=== PATIENT | female | born 1940 | race Caucasian/White ===

== ENCOUNTER → 2017-05-11 | Outpatient (CLI) | payer MEDICARE | END | disposition home or self-care (01) | LOC: GMAM 17:31 | PROVIDERS: ATTEND Family Medicine | DX: M25.50 Pain in unspecified joint (principal) ==

== ENCOUNTER → 2017-05-20 | Outpatient (CLI) | payer MEDICARE | END | disposition home or self-care (01) | LOC: GMAM 17:00 | PROVIDERS: ATTEND Family Medicine | DX: D64.9 Anemia, unspecified (principal); D51.9 Vitamin B12 deficiency anemia, unspecified ==

== ENCOUNTER 2017-05-28 17:31 | Inpatient (IN) | payer MEDICARE ==
[2017-05-28] MEDS ORDERED: PANTOPRAZOLE SODIUM IV 40 MG VIAL IV ONE (18:40)
[2017-05-28] MEDS ORDERED: SODIUM CHLORIDE 0.9% 1000ML 1,000 ML IVS ONE ×2 (18:40→23:38)
--- NOTE | 2017-05-28 18:42 | ED.PDOC ---
History of Present Illness - General Chief Complaint: Abdominal Pain Stated Complaint: Right upper abdominal discomfort Time Seen by Provider: 05/28/17 17:35 Source: patient, RN notes reviewed, Vital Signs reviewed, RN/MD Exam Limitations: no limitations - History of Present Illness Initial Comments: Patient sent to ER by PCP due to anemia and RUQ abdominal pain. Her Hgb in Clinic was 8.2 and her stool was guiac +. She reports intermittent RUQ soreness for the past 4 days. Pain is worse with Tomatoes and an empty stomach and feels better if she eats crackers. She no longer has her gallbladder. She does have history of a gastric ulcer. Timing/Duration: intermittent - over past 4 days Severity: mild Improving Factors: eating Worsening Factors: other - empty stomach and acidic foods Associated Symptoms: malaise, weakness Allergies/Adverse Reactions: Allergies Acetaminophen [From Vicodin] Allergy (Verified 05/28/17 19:42) Unknown Cephalexin [From Keflex] Allergy (Verified 05/28/17 19:42) Unknown Cimetidine [From Tagamet HB] Allergy (Verified 05/28/17 19:42) Unknown Clarithromycin [From Biaxin] Allergy (Verified 05/28/17 19:42) Unknown Codeine Allergy (Verified 05/28/17 19:42) Unknown Cyclobenzaprine [From Flexeril] Allergy (Verified 05/28/17 19:42) Unknown Fluoxetine [From Prozac] Allergy (Verified 05/28/17 19:42) Unknown Hydrocodone [From Vicodin] Allergy (Verified 05/28/17 19:42) Unknown Levofloxacin [From Levaquin] Allergy (Verified 05/28/17 19:42) Unknown Penicillins Allergy (Verified 05/28/17 19:42) Unknown Sulfamethoxazole w/Trimethoprim [From Bactrim] Allergy (Verified 05/28/17 19:42) Unknown Sulfonamides Allergy (Uncoded 05/28/17 19:42) Unknown Review of Systems - Review of Systems Constitutional: States: malaise, weakness. Denies: chills, fever EENTM: States: no symptoms reported Respiratory: States: no symptoms reported Cardiology: States: no symptoms reported Gastrointestinal/Abdominal: States: see HPI, abdominal pain, nausea. Denies: constipation, diarrhea, vomiting Genitourinary: States: no symptoms reported Musculoskeletal: States: no symptoms reported Skin: States: no symptoms reported Neurological: States: no symptoms reported Hematologic/Lymphatic: States: easy bruising All other Systems: No Change from Baseline Past Medical History (General) - Patient Medical History Hx Stroke: No Hx Congestive Heart Failure: No Hx Hypertension: Yes Hx Diabetes: No Hx Gastroesophageal Reflux: Yes MRSA Source:: Blood Surgical History: appendectomy, cholecystectomy, Hysterectomy, other - Vaccination History Hx Influenza Vaccination: Yes - 2017 Hx Pneumococcal Vaccination: Yes - unknown date - Social History Hx Tobacco Use: No Family Medical History - Family History Mother Living Status: Age at (years of age): 89 Hx Family Congestive Heart Failure: Yes - onset at 89 years age Physical Exam - Physical Exam General Appearance: Alert, Comfortable, No apparent distress, Well Developed, Well Groomed, Well Hydrated, Well Nourished Ears, Nose, Throat: hearing grossly normal Neck: full range of motion, supple, normal inspection Respiratory: lungs clear, normal breath sounds, no respiratory distress, no accessory muscle use Cardiovascular/Chest: regular rate, rhythm, no edema, no gallop, no JVD, no murmur Gastrointestinal/Abdominal: normal bowel sounds, soft, no organomegaly, no pulsatile mass, tenderness - mild epigastric tenderness Extremity: normal range of motion, non-tender, normal inspection, no pedal edema Neurologic: alert, normal mood/affect, oriented x 3 Skin Exam: normal color, warm/dry Comments: Vital Signs 05/28/17 18:06 Temperature 98.1 F Pulse Rate [ 69 Left Radial] Respiratory 18 Rate Blood Pressure 123/47 [Left Arm] O2 Sat by Pulse 95 Oximetry Progress - Progress Progress: 05/28/17 20:35 Pain resolved with Protonix Awaiting eval by Hospitalist 05/28/17 21:14 Discussed with Veronica Holliday NP - will admit - Results/Orders Results/Orders: Laboratory Tests 05/28/17 05/28/17 19:36 19:36 WBC 14.0 H RBC 2.29 L Hgb 7.7 L* Hct 23.3 L MCV 101.5 H MCH 33.6 H MCHC 33.2 RDW 17.1 H Plt Count 124 L MPV 10.3 Absolute Neuts (auto) 8.40 H Absolute Lymphs (auto) 3.70 H Absolute Monos (auto) 1.60 H Absolute Eos (auto) 0.20 Absolute Basos (auto) 0.20 H Neutrophils % 59.6 Lymphocytes % 26.2 Monocytes % 11.3 H Eosinophils % 1.7 Basophils % 1.2 Sodium 135 Potassium 5.3 H Chloride 98 L Carbon Dioxide 25 Anion Gap 17.3 BUN 71 H Creatinine 2.06 H BUN/Creatinine Ratio 34.5 H Random Glucose 127 H Serum Osmolality 292.5 Calcium 9.9 Total Bilirubin 0.3 AST 22 ALT 16 Alkaline Phosphatase 65 Serum Total Protein 7.2 Albumin 3.7 Globulin 3.5 Albumin/Globulin Ratio 1.1 Departure - Departure Clinical Impression: Anemia Qualifiers: Anemia type: unspecified type Qualified Code(s): D64.9 - Anemia, unspecified Gastritis Qualifiers: Gastritis type: unspecified gastritis Chronicity: acute Gastritis bleeding: presence of bleeding unspecified Qualified Code(s): K29.00 - Acute gastritis without bleeding Time of Disposition: 21:14 Disposition: Admit Patient Condition: Good Departure Forms: ED Discharge - Pt. Copy, Patient Portal Self Enrollment Referrals: Anibal Godinez MD [Primary Care Provider] - 1-2 Weeks Decision To Admit - Decistion To Admit Decision to Admit Reason: Admit from ER Decision to Admit Date: 05/28/17 Decision to Admit Time: 21:12
[2017-05-28] MEDS ORDERED: diphenhydrAMINE HCL 50 MG/ML VIAL IV ONE (21:45)
[2017-05-28] MEDS ORDERED: FUROSEMIDE INJ 20 MG/2 ML VIAL IV ONE (21:45)
[2017-05-28] MEDS ORDERED: SODIUM CHLORIDE 0.9% 500ML 500 ML IVS SCH (22:00)
--- NOTE | 2017-05-28 22:10 | HP ---
SUPERVISING PHYSICIAN: Anibal Godinez MD CHIEF COMPLAINT: Right upper quadrant abdominal pain, weakness and fatigue. HISTORY OF PRESENT ILLNESS: This is a 77-year-old, female patient who has just recently moved to [place] to live with her daughter. She had been seen a week or so ago in clinic and Dr. Godinez had some some routine blood work as well as an anemia panel because she presented with anemia at that time. She also had some inflammatory issues going on and an inflammatory panel was also done. Today, she presented with right upper quadrant abdominal pain that was quite severe and she also reported there were some blood streaks on her toilet tissue and she did have a guaiac-positive stool. She was seen in the Urgent Care Clinic at [facility] and was sent over to the Emergency Room for a workup. Earlier in the week, her hemoglobin was 8.7 and today in the Emergency Room, it was 7.7. She had an elevated white count of 14,000, but her neutrophils are normal at 59.6%. Her MCV was 101.5 with MCHC of 33.2 and MCH of 33.6. Platelet count was slightly low at 124 with sodium 135, potassium 5.3, chloride 98, carbon dioxide 25, BUN 71, creatinine 2.06. She does have a history of some renal failure that was diagnosed in 2008 due to excessive intake of NSAIDs. No radiology exams were done in the Emergency Room. I discussed her case with Dr. Godinez and felt that most likely her anemia may be due to anemia of chronic disease. She has had an increased amount of stress with her recent move from [place] to [place]. She also had guaiac-positive stool, but she also has hemorrhoids, so her occult may be positive due to that. She was admitted to the hospital. PAST MEDICAL HISTORY: 1. Gastroesophageal reflux disease. 2. B12 deficiency. 3. Unspecified anemia. 4. Hypertension. 5. Chronic renal failure. 6. Polio at age 1. 7. Chronic back pain. PAST SURGICAL HISTORY: 1. Appendectomy. 2. Cholecystectomy. 3. Hysterectomy. 4. Arthroscopy of the right knee. 5. Bilateral cataract removal. 6. Right knee join replacement. 7. Six back surgeries. 8. Right shoulder replacement. 9. Lysis of adhesions. 10. Left ankle surgery 11. Multiple breast biopsies. 12. Right carpal tunnel release. OUTPATIENT MEDICATIONS: Per the EMR and awaiting verification. ALLERGIES: All of her allergies to antibiotics are adverse reactions that cause itching except for Levaquin, and she was hospitalized for an unknown reaction. Otherwise, her allergies are to: LEVAQUIN, BACTRIM, BIAXIN, CODEINE , FLEXERIL, KEFLEX, PENICILLIN, PROZAC, SULFA, TAGAMET, VICODIN. FAMILY HISTORY: Her father had coronary artery disease and type 2 diabetes. Her mother had congestive heart failure. SOCIAL HISTORY: She has lived most of her life in [place]. She is retired. She is . She has three children. She has just recently moved to [place]. She denies any ETOH or tobacco use. REVIEW OF SYSTEMS: GENERAL: Positive for fatigue. Negative for fever or weight changes. HEENT: Negative for sinus symptoms, ear pain, vision changes or sore throat. RESPIRATORY: Negative for dyspnea, wheezing, coughing. CARDIAC: Negative for chest pain, palpitations or tachycardia. GASTROINTESTINAL: As per history of present illness. GENITOURINARY: Negative for hematuria, dysuria or polyuria. NEUROLOGIC: Positive for weakness. Negative for headache, dizziness or seizures. PHYSICAL EXAMINATION: VITAL SIGNS: Afebrile. Heart rate 69. Blood pressure 123/47. Respiratory rate 20. O2 saturation 95% GENERAL: This is a 77-year-old, female patient who is lying in her hospital bed. She is in no acute distress. HEENT: Normocephalic, atraumatic. Pupils are equal and reactive. Oropharynx is clear. Oral mucous membranes are moist. NECK: Supple without mass. RESPIRATORY: Clear to auscultation bilaterally. CARDIOVASCULAR: Regular rate and rhythm. ABDOMEN: Soft, nondistended, very mildly tender in the right upper quadrant, but otherwise nontender in the other quadrants. Bowel sounds are positive. EXTREMITIES: No cyanosis, clubbing or edema. NEUROLOGIC: Awake, alert and oriented times three. LABORATORY: As per history of present illness. ASSESSMENT: 1. Severe acute anemia with macrocytic/normochromic presentation. The patient has a normal B12 and folate level. Her iron is within normal limits. Her TIBC and ferritin are elevated, mostly likely this is anemia of chronic disease given her renal failure, but due to the guaiac-positive stool, we cannot rule out some blood loss anemia. 2. Acute on chronic renal failure. Her previous creatinine was 1.8 and we have no other records to go by. 3. Acute onset of weakness within the last two to three weeks. 4. Gastritis, most likely d/t increased stress with recent move, as well as has dementia. 5. Gastroesophageal reflux disease. 6. History of unspecified anemia. 7. 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 She does have an appointment with Dr. Katherin Shaffer, who is a [employer] supervisor in [place]. 8. Hypertension. 9. Chronic back pain. PLAN: We will admit the patient to the hospital. I will transfuse 2 units of packed red blood cells. She does have some antibodies and her blood will have to come from another facility's blood bank. I will start her on Protonix for ulcer prophylaxis as well as SCDs for DVT prophylaxis. I will do an abdominal x -ray in the morning and repeat lab work in the morning. Most likely, she will need a hematology referral and I may talk to Dr. Moise in the morning with her lab results. She will also need a GI referral in regards to her positive stool for occult blood. We will also need a physical therapy consult in the next day or two, but at this time I will hold off on that. I will give her some fluids overnight until the blood is available to help correct her renal function. Otherwise, we will continue to monitor the patient closely and follow as needed. Dr. Godinez is the collaborating physician and available for consultation. #[id number] [facility]
[2017-05-28] MEDS ORDERED: SODIUM CHLORIDE 0.9% (FLUSH) 10 ML SYG IV PRN (22:40)
[2017-05-28] MEDS ORDERED: IV SET AND CAP CHANGE INJ INJ SCH (23:00)
[2017-05-28] MEDS ORDERED: PANTOPRAZOLE SODIUM IV 40 MG VIAL IV SCH (23:00)
--- NOTE | 2017-05-28 23:11 | PCM.CORE ---
Physician DVT/VTE - Contraindications Medication Contraindication: Medical Contraindication - 5 or more Very High Risk Treatments: Early Ambulation *, Sequential Compression Device
[2017-05-28] MEDS ORDERED: RAMIPRIL 5 MG CAP ONE (23:19)
[2017-05-28] MEDS ORDERED: RAMIPRIL 5 MG CAP PO ONE (23:26)
[2017-05-28] MEDS ORDERED: ACETAMINOPHEN 325 MG TAB PO PRN (23:41)
[2017-05-28] MEDS: traMADol HCL 50 MG TAB PO PRN (23:53)
[2017-05-29] MEDS ORDERED: PANTOPRAZOLE SODIUM IV 40 MG VIAL IV SCH (06:30)
--- NOTE | 2017-05-29 06:49 | RAD ---
EXAM DESCRIPTION: Abdomen 1 View CLINICAL HISTORY: abd pain COMPARISON: None. FINDINGS: Single view of the abdomen. No dilated loops of bowel. Moderate amount stool. Ridge and screw fixation of the lumbar spine. Prior cholecystectomy other postoperative changes in the abdomen. No definite free intraperitoneal air. IMPRESSION: Nonspecific bowel gas pattern. Electronically signed by: Darren Wilson 05/29/2017 6:48 AM [facility]
[2017-05-29] MEDS: traMADol HCL 50 MG TAB PO PRN (08:30)
[2017-05-29] MEDS: ACETAMINOPHEN 325 MG TAB PO ONE ×2 (11:04→11:09)
[2017-05-29] MEDS ORDERED: ACETAMINOPHEN 325 MG TAB PO ONE (11:10)
[2017-05-29] MEDS ORDERED: FUROSEMIDE INJ 20 MG/2 ML VIAL IV ONE (11:10)
[2017-05-29] MEDS ORDERED: diphenhydrAMINE HCL 50 MG/ML VIAL IV ONE (11:11)
[2017-05-29] MEDS: DICLOFENAC SODIUM 1% TOP SCH ×3 (13:27→20:55)
--- NOTE | 2017-05-29 13:41 | PN ---
SUPERVISING PHYSICIAN: Anibal Godinez MD DATE: 05/29/17 SUBJECTIVE: The patient is sitting in her hospital bed. She is eating her lunch. She still feels quite weak, but is feeling better than she did last night. She is tolerating her food without issues and otherwise has no complaints of chest pain, shortness of breath, nausea, vomiting, diarrhea or constipation. OBJECTIVE: VITAL SIGNS: Afebrile. Heart rate 73. Blood pressure 147/54. Respiratory rate 16. O2 saturation 97% on room air. LUNGS: Essentially clear to auscultation bilaterally. CARDIAC: Regular rate and rhythm. ABDOMEN: Soft, nondistended, nontender. Bowel sounds are positive. EXTREMITIES: No cyanosis, clubbing or edema. NEUROLOGIC: Awake, alert and oriented times three. LABORATORY: White count improved to 12.1 as well as hemoglobin has come up slightly to 8.3 and hematocrit 24.8. Platelet count slightly down at 114. Neutrophils are 60.5%. Sodium 140, potassium improved from 5.3 yesterday to 4.2 today. BUN 60, creatinine improved from 2.06 yesterday to 1.61 today. Serum osmolality is slightly high at 296.4. UA was basically within normal limits. Abdominal x-ray per radiologic interpretation shows nonspecific bowel gas pattern. All other labs and films have been reviewed via the EMR. ASSESSMENT: 1. Severe acute anemia with macrocytic/normochromic presentation. The patient has a normal B12 and folate level. Her iron is within normal limits. Her TIBC and ferritin are elevated, mostly likely this is anemia of chronic disease given her renal failure, but due to the guaiac-positive stool, we cannot rule out some blood loss anemia. 2. Acute on chronic renal failure. Her previous creatinine was 1.8 and we have no other records to go by. 3. Acute onset of weakness within the last two to three weeks. 4. Gastritis, most likely d/t increased stress with recent move, as well as has dementia. 5. Gastroesophageal reflux disease. 6. History of unspecified anemia. 7. 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 She does have an appointment with Dr. Katherin Shaffer, who is a reserve officer in [place]. 8. Hypertension. 9. Chronic back pain. 10. Hyperkalemia, improved. PLAN: We will continue present supportive care. I have ordered routine lab for in the morning. Because of her continued weakness as well as the antibodies in her blood, I will go ahead and transfuse 2 units of packed red blood cells as soon as they are available from the Blood Bank. I will also advance her diet as she is tolerating her liquids well. I will also order some physical therapy to make sure she is safe to go home. Encourage good pulmonary hygiene. I have restarted all her home medications. She will need close followup with Dr. Godinez as well as a GI consult and hematology consult due to her complicated anemia. Otherwise, we will continue to monitor the patient closely and follow as needed. Dr. Godinez is the collaborating physician and available for consultation. #[id number] [facility]
[2017-05-29] MEDS ORDERED: FUROSEMIDE INJ 20 MG/2 ML VIAL ONE (16:19)
[2017-05-29] MEDS: FLUTICASONE PROPIONATE 44 MCG INH SCH (20:10)
[2017-05-29] MEDS ORDERED: PANTOPRAZOLE SODIUM TAB 40 MG PO ONE (20:20)
[2017-05-29] MEDS: tiZANidine 4 MG TAB PO SCH (20:55)
[2017-05-29] MEDS: RAMIPRIL 5 MG CAP PO SCH (20:56)
[2017-05-29] MEDS ORDERED: MELATONIN 3 MG TAB PO SCH (21:00)
[2017-05-29] MEDS ORDERED: NON-FORMULARY MEDICATION 1 EA MIS (Melatonin [Melatonin] 5 MG) PO SCH (21:00)
[2017-05-29] MEDS ORDERED: RAMIPRIL 5 MG CAP PO ONE (22:55)
[2017-05-30] MEDS ORDERED: PANTOPRAZOLE SODIUM TAB 40 MG PO SCH (06:30)
[2017-05-30] MEDS: FLUTICASONE PROPIONATE 44 MCG INH SCH (08:48)
[2017-05-30] MEDS ORDERED: TORSEMIDE TAB 20 MG PO SCH (09:00)
[2017-05-30] MEDS ORDERED: amLODIPine BESYLATE 5 MG TAB PO SCH (09:00)
[2017-05-30] MEDS ORDERED: ESTRADIOL TAB 1 MG PO SCH (09:00)
[2017-05-30] MEDS ORDERED: CETIRIZINE HCL 10 MG TAB PO SCH (09:00)
[2017-05-30] MEDS ORDERED: NON-FORMULARY MEDICATION 1 EA MIS (Levocetirizine Dihydrochloride [Xyzal] 5 MG) PO SCH (09:00)
[2017-05-30] MEDS ORDERED: NEBIVOLOL 2.5 MG TAB PO SCH (09:00)
[2017-05-30] MEDS: tiZANidine 4 MG TAB PO SCH (09:28)
[2017-05-30] MEDS: DICLOFENAC SODIUM 1% TOP SCH (09:34)
[2017-05-30 09:48] VITALS: O2SAT 98
[2017-05-30] MEDS: RAMIPRIL 5 MG CAP PO SCH (09:52)
[2017-05-30 13:52] VITALS: BP 122/74; TEMP 98
--- NOTE | 2017-05-30 20:31 | DS ---
SUPERVISING PHYSICIAN: Anibal Godinez M.D. DISCHARGE DIAGNOSIS: 1. Severe acute anemia with macrocytic/normochromic presentation. The patient has a normal B12 and folate level. Her iron is within normal limits. Her TIBC and ferritin are elevated, mostly likely this is anemia of chronic disease given her renal failure, but due to the guaiac-positive stool, we cannot rule out some blood loss anemia. 2. Acute on chronic renal failure. Her previous creatinine was 1.8 and we have no other records to go by. 3. Acute onset of weakness within the last two to three weeks. 4. Gastritis, most likely d/t increased stress with recent move, as well as has dementia. 5. Gastroesophageal reflux disease. 6. History of unspecified anemia. 7. 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 She does have an appointment with Dr. Katherin Shaffer, who is a pcat instructor in [place]. 8. Hypertension. 9. Chronic back pain. HISTORY OF PRESENT ILLNESS: Ms. Bobo is a 77 year-old white female who appears her stated age. She recently moved to [place] to live with her daughter. She had been seen a week or so ago in the clinic by Dr. Godinez. She had some routine blood work done as well as an anemia panel due to her presenting with anemia at that time. She also had some inflammatory issues going on and on 05/28/17 presented with right upper quadrant abdominal pain quite severe and some blood in her toilet. She was found to have had positive stool guaiacs seen in the Urgent Care Clinic at [facility] and transferred to the Emergency Room for a workup. Her hemoglobin at that time was 8.7. In the E. R. it was found to be 7.7. Her kidney functions were also elevated. BUN was 71, creatinine 2.06, potassium 5.3, sodium 135, chloride 98. She does have a history of renal failure diagnosed in 2008 due to excessive NSAID use. HOSPITAL COURSE: She was monitored in the hospital and transfused with 2 units of packed red blood cells when it was available from the Blood Bank. Good pulmonary hygiene was encouraged and she was encouraged to get up and ambulate in the room. Physical Therapy made sure it was safe for her to go home and evaluated her in the hospital setting. DISCHARGE PLAN: The patient will be discharged home in stable condition. She will followup with Dr. Godinez on 06/05/17 at 8:30 in the morning. She is to continue her home medications and activity as tolerated. She will probably receive GI consultation, hematology consultation and nephrology consultation after discharge under Dr. Danielle Godinez's supervision. DISCHARGE MEDICATIONS: 1. Tramadol HCl 300 mg capsules 1 p.o. daily. 2. Tramadol 50 mg p.o. every 6 hours p.r.n. 3. Torsemide 20 mg, 10 to 20 mg p.o. daily. 4. Tizanidine HCl 4 mg capsules 1 p.o. b.i.d. 5. Ramipril 10 mg caps 1 p.o. b.i.d. 6. Omeprazole 20 mg 1 p.o. daily. 7. Melatonin 5 mg 1 p.o. at h.s. 8. Levocetirizine 5 mg p.o. daily. 9. Hydralazine 50 mg p.o. daily. 10. Flovent HFA 44 mcg inhalation b.i.d. 11. Estradiol 1 mg tablet 1 p.o. daily. 12. Voltaren gel 1% 1 gram topical q.i.d. 13. Bystolic 10 mg 1 p.o. daily. 14. Amlodipine 5 [address] Godinez is the collaborating physician available for consultation. #[id number] [facility]
== END 2017-05-30 13:53 | disposition home or self-care (01) | DRG 812 ==
LOC: ER 17:31 → MS 22:09 → OBSVTOIN 22:09
PROVIDERS: ADMIT Nurse Practitioner Acute Care; ATTEND Nurse Practitioner Family
PROC: 30233N1 Transfusion of Nonautologous Red Blood Cells into Peripheral Vein, Percutaneous Approach (ICD-10-PCS; principal; 2017-05-29)
DX: D50.9 Iron deficiency anemia, unspecified (principal); N17.9 Acute kidney failure, unspecified; I12.9 Hypertensive chronic kidney disease with stage 1 through stage 4 chronic kidney disease, or unspecified chronic kidney disease; E87.5 Hyperkalemia; N18.9 Chronic kidney disease, unspecified; K29.00 Acute gastritis without bleeding; R19.5 Other fecal abnormalities; D63.1 Anemia in chronic kidney disease; R53.1 Weakness; K21.9 Gastro-esophageal reflux disease without esophagitis; D89.89 Other specified disorders involving the immune mechanism, not elsewhere classified; G89.29 Other chronic pain; M54.9 Dorsalgia, unspecified; Z96.611 Presence of right artificial shoulder joint; Z86.12 Personal history of poliomyelitis; Z88.1 Allergy status to other antibiotic agents; Z88.3 Allergy status to other anti-infective agents; Z88.5 Allergy status to narcotic agent; Z88.0 Allergy status to penicillin; Z88.2 Allergy status to sulfonamides; Z88.8 Allergy status to other drugs, medicaments and biological substances

== ENCOUNTER → 2017-06-05 | Outpatient (CLI) | payer MEDICARE | END | disposition home or self-care (01) | LOC: GMAM 12:39 | PROVIDERS: ATTEND Family Medicine | DX: M79.672 Pain in left foot (principal) ==

== ENCOUNTER 2017-06-16 12:35 | Emergency (ER) | payer MEDICARE ==
[2017-06-16 13:37] VITALS: O2SAT 98
[2017-06-16] MEDS ORDERED: BACITRACIN 0.9 GM UD PCKT TOP ONE (13:48)
--- NOTE | 2017-06-16 13:51 | ED.PDOC ---
History of Present Illness - General Chief Complaint: Skin/Abrasion/Tear Stated Complaint: Skin tear to left forearm Time Seen by Provider: 06/16/17 13:40 Source: patient, family Exam Limitations: no limitations - History of Present Illness Initial Comments: FELL ON CARPET AT HOME. L FOREARM SKIN TEAR. DENIES HEAD OR NECK COLLISION. NO LOC. Timing/Duration: this morning Location: extremities Improving Factors: nothing Worsening Factors: nothing Associated Symptoms: denies symptoms Allergies/Adverse Reactions: Allergies Cephalexin [From Keflex] Allergy (Verified 06/16/17 13:21) Unknown Cimetidine [From Tagamet HB] Allergy (Verified 06/16/17 13:21) Unknown Clarithromycin [From Biaxin] Allergy (Verified 06/16/17 13:21) Unknown Codeine Allergy (Verified 06/16/17 13:21) Unknown Cyclobenzaprine [From Flexeril] Allergy (Verified 06/16/17 13:21) Unknown Fluoxetine [From Prozac] Allergy (Verified 06/16/17 13:21) Unknown Hydrocodone [From Vicodin] Allergy (Verified 06/16/17 13:21) Unknown Levofloxacin [From Levaquin] Allergy (Verified 06/16/17 13:21) Unknown Penicillins Allergy (Verified 06/16/17 13:21) Unknown Sulfamethoxazole w/Trimethoprim [From Bactrim] Allergy (Verified 06/16/17 13:21) Unknown Sulfonamides Allergy (Uncoded 06/16/17 13:21) Unknown Home Medications: Ambulatory Orders Amlodipine Besylate 5 mg PO DAILY 05/29/17 Bystolic 10 mg PO DAILY 05/29/17 Diclofenac Sodium (Topical) [Voltaren] 1 % TOP QID 05/29/17 Estradiol 1 mg PO DAILY 05/29/17 Fluticasone Propionate Hfa [Flovent Hfa] 44 mcg IN BID 05/29/17 Hydralazine HCl 50 mg PO DAILY 05/29/17 Levocetirizine Dihydrochloride [Xyzal] 5 mg PO DAILY 05/29/17 Melatonin 5 mg PO BEDTIME 05/29/17 Omeprazole 20 mg PO DAILY 05/29/17 Ramipril 10 mg PO BID 05/29/17 Tizanidine HCl 4 mg PO BID 05/29/17 Torsemide 10 - 20 mg PO DAILY 05/29/17 Tramadol HCl 50 mg PO Q6HR PRN 05/29/17 Tramadol HCl [Tramadol HCl ER] 300 mg PO DAILY 05/29/17 Review of Systems - Review of Systems Skin: States: lesions All other Systems: Reviewed and Negative Past Medical History (General) - Patient Medical History Hx Seizures: No Hx Stroke: No Hx Asthma: No Hx of COPD: No Hx Congestive Heart Failure: No Hx Pacemaker: No Hx Hypertension: No Hx Diabetes: No Hx Gastroesophageal Reflux: Yes Hx MRSA: No MRSA Source:: Blood - Vaccination History Hx Influenza Vaccination: Yes - 2017 Hx Pneumococcal Vaccination: Yes - unknown date - Social History Hx Tobacco Use: No Hx Alcohol Use: No Hx Substance Use: No Hx Physical Abuse: No Hx Emotional Abuse: No Family Medical History - Family History Mother Living Status: Age at (years of age): 89 Hx Family Congestive Heart Failure: Yes - onset at 89 years age Physical Exam - Physical Exam General Appearance: Alert, Well Groomed Eyes, Ears, Nose, Throat Exam: PERRL/EOMI, normal ENT inspection Neck: non-tender, full range of motion Cardiovascular/Chest: normal peripheral pulses, regular rate, rhythm Respiratory: chest non-tender, lungs clear Gastrointestinal/Abdominal: normal bowel sounds, non tender Back Exam: normal inspection, no CVA tenderness Extremity: normal range of motion Neurologic: alert, normal mood/affect Skin Exam: warm/dry, other - L FOREARM 6X3 CM SKIN TEAR. SKIN STILL PRESENT A FLAP. Skin Problem Location: upper extremities Skin Character: lesion Lymphatic: no adenopathy Progress - Results/Orders Results/Orders: L FOREARM SKIN TEAR 6X3 CM REPAIR: SKIN FLAP WAS IRRIGATED WITH SALINE. THEN ROLLED UP AND REAPPROXIMATED. ALL SKIN EDGES ALIGNED WELL. AFFIXED WITH STERI STRIPS. APPLIED BACITRACIN ON TOP AND COVERED WITH TELFA PAD. Departure - Departure Clinical Impression: Skin tear of left forearm without complication Disposition: Discharge to Home or Self Care Condition: Good Departure Forms: ED Discharge - Pt. Copy, Patient Portal Self Enrollment Instructions: DI for Abrasion Diet: resume usual diet Activity: ambulate only with walker Referrals: Anibal Godinez MD [Primary Care Provider] - 1-2 Weeks Home Medications: Ambulatory Orders Amlodipine Besylate 5 mg PO DAILY 05/29/17 Bystolic 10 mg PO DAILY 05/29/17 Diclofenac Sodium (Topical) [Voltaren] 1 % TOP QID 05/29/17 Estradiol 1 mg PO DAILY 05/29/17 Fluticasone Propionate Hfa [Flovent Hfa] 44 mcg IN BID 05/29/17 Hydralazine HCl 50 mg PO DAILY 05/29/17 Levocetirizine Dihydrochloride [Xyzal] 5 mg PO DAILY 05/29/17 Melatonin 5 mg PO BEDTIME 05/29/17 Omeprazole 20 mg PO DAILY 05/29/17 Ramipril 10 mg PO BID 05/29/17 Tizanidine HCl 4 mg PO BID 05/29/17 Torsemide 10 - 20 mg PO DAILY 05/29/17 Tramadol HCl 50 mg PO Q6HR PRN 05/29/17 Tramadol HCl [Tramadol HCl ER] 300 mg PO DAILY 05/29/17 Additional Instructions: Please gently cleanse twice per day with soapy water, pat dry, apply bacitracin and lightly cover with a telfa pad. Please leave the steri strips in place and they will eventually fall off.
[2017-06-16] MEDS ORDERED: NEOMYCIN-BACITRACIN-POLYMYXIN 0.9 GM UD TOP ONE (13:54)
[2017-06-16 14:10] VITALS: BP 149/75; TEMP 97.2
== END 2017-06-16 14:11 | disposition home or self-care (01) ==
LOC: ER 12:35
DX: S51.812A Laceration without foreign body of left forearm, initial encounter (principal); Z88.0 Allergy status to penicillin; Z88.3 Allergy status to other anti-infective agents; Z88.8 Allergy status to other drugs, medicaments and biological substances; Z79.899 Other long term (current) drug therapy; X58.XXXA Exposure to other specified factors, initial encounter; Y92.9 Unspecified place or not applicable